=== PATIENT | male | born 1990 | race Caucasian/White ===

== ENCOUNTER 2017-05-04 15:49 | Emergency (ER) | payer MEDICAID ==
[2017-05-04] MEDS ORDERED: HYDROmorphone 1 MG/ML Syringe IM ONE (16:16)
--- NOTE | 2017-05-04 16:43 | EDM.PDOC ---
ED HPI GENERAL MEDICAL PROBLEM - General Chief Complaint: Upper Extremity Injury/Pain Stated Complaint: DISLOCATED R SHOULDER Time Seen by Provider: 05/04/17 16:25 Source of Information: Reports: Patient History Limitations: Reports: No Limitations - History of Present Illness INITIAL COMMENTS - FREE TEXT/NARRATIVE: 26-year-old male with recurring dislocations of his right shoulder pop the shoulder all while getting out of bed. This happened about 5 hours ago, he tried several different maneuvers but was unable to reduce it. No other injury. Onset: Sudden Duration: Hour(s): (5 hours ago) Location: Reports: Upper Extremity, Right Severity: Moderate Associated Symptoms: Reports: No Other Symptoms - Related Data Allergies Allergy/AdvReac Type Severity Reaction Status Date / Time No Known Allergies Allergy Verified 05/04/17 16:24 Home Meds: Home Meds Elviteg/Anika/Emtric/Tenofo Ala [Genvoya Tablet] 05/04/17 [History] LORazepam [Ativan] 05/04/17 [History] Venlafaxine [Effexor XR] 05/04/17 [History] Past Medical History - Past Health History Medical/Surgical History: Denies Medical/Surgical History Gastrointestinal History: Reports: Inflammatory Bowel Disease Other Musculoskeletal History: states 30 previous shoulder dislocations Psychiatric History: Reports: PTSD - Past Surgical History GI Surgical History: Reports: Colon Social & Family History - Tobacco Use Smoking Status *Q: Current Every Day Smoker Years of Tobacco use: 6 Packs/Tins Daily: 1 Review of Systems - Review of Systems Review Of Systems: See Below Constitutional: Denies: Fever Respiratory: Denies: Shortness of Breath GI/Abdominal: Denies: Abdominal Pain, Nausea, Vomiting Skin: Denies: Bruising Neurological: Denies: Headache ED EXAM, GENERAL - Physical Exam Exam: See Below Exam Limited By: No Limitations General Appearance: Alert, Anxious, Moderate Distress Respiratory/Chest: No Respiratory Distress Extremities: Other (Exam is otherwise limited to the upper extremities. There is a defect under the distal clavicle on the right side, an apparent anterior dislocation of the humerus with significant pain with any movement of the upper arm.) Course - Vital Signs Last Recorded V/S: Last Vital Signs Temp 97.4 F 05/04/17 16:34 Pulse 71 05/04/17 16:34 Resp 20 05/04/17 16:34 BP 129/89 01/06/18 16:34 Pulse Ox 99 05/04/17 16:34 - Orders/Labs/Meds Meds: Medications Discontinued Medications Generic Name Dose Route Start Last Admin Trade Name Ruthann PRN Reason Stop Dose Admin Hydromorphone HCl 1 mg 05/04/17 16:16 05/04/17 16:35 Dilaudid IM 05/04/17 16:17 1 mg ONETIME ONE Administration - Re-Assessments/Exams Free Text/Narrative Re-Assessment/Exam: 05/04/17 16:41 Patient was given 1 mg of IM Dilaudid, allowed to relax and then without any additional anesthesia the arm was reduced with countertraction and rotation. A sling was applied and the patient was given ibuprofen for pain control. It was strongly recommended he follow up with orthopedics. Departure - Departure Time of Disposition: 16:56 Disposition: Home, Self-Care 01 Condition: Good Clinical Impression: Dislocation of right shoulder joint Qualifiers: Encounter type: initial encounter Qualified Code(s): S43.004A - Unspecified dislocation of right shoulder joint, initial encounter - Discharge Information Instructions: Shoulder Dislocation, [id number] Referrals: Lorelei Harkins MD [Primary Care Provider] - Forms: ED Department Discharge Care Plan Goals: Wear sling until next week, then recheck with orthopedics in [place] next week. Take ibuprofen up to 4 times a day for pain control if needed.
== END 2017-05-04 16:56 | disposition home or self-care (01) ==
LOC: JP.ED 15:49
DX: S43.004A Unspecified dislocation of right shoulder joint, initial encounter (principal); F17.210 Nicotine dependence, cigarettes, uncomplicated; X50.9XXA Other and unspecified overexertion or strenuous movements or postures, initial encounter
CPT/HCPCS: 23650; 96372; 99283; J1170